=== PATIENT | female | born 1975 | race Two or more races ===

== ENCOUNTER 2019-04-21 14:18 | Emergency (ER) | payer OTHER ==
--- OUTSIDE RECORDS SUMMARY | 2019-04-21 14:36 | XMS REPORT | Continuity of Care Document ---
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 Description No Information Available Social History Type Date Description Comments Sex Unknown Tobacco Use Start: Unknown Patient is a current smoker, smokes some days Smoking Status Reviewed: 03/17/19 Patient is a current smoker, smokes some days Allergies, Adverse Reactions, Alerts Description No Known Drug Allergies Medications Active Medications SIG Qnty Indications Ordering Provider Date Pantoprazole Sodium 1 by mouth 90tabs K44.9 Frances Jin MD 03/17/2019 20mg every day Tablets DR History Medications No Active Medications Frances Jin MD 03/17/2019 - 03/17/2019 Immunizations CPT Code Status Date Vaccine Reaction Lot # [id number] Given 03/17/2019 Tdap - No immediate reaction [id number] Tetanus/Diptheria/Acellular Pertussis Vital Signs Date Vital Result Comment 03/17/2019 3:48pm Height 68 inches 5'8" Weight 245.00 lb Heart Rate 68 /min BP Systolic Sitting 124 mmHg BP Diastolic Sitting 86 mmHg Body Temperature 98.4 F O2 % BldC Oximetry 98 % BMI (Body Mass Index) 37.2 kg/m2 Results Description No Information Available Procedures Description No Information Available Medical Devices Description No Information Available Encounters Description No Information Available Assessments Date Code Description Provider 03/17/2019 K44.9 Diaphragmatic hernia without obstruction or gangrene Frances Jin MD 03/17/2019 D50.9 Iron deficiency anemia, unspecified Frances Jin MD 03/17/2019 E66.9 Obesity, unspecified Frances Jin MD 03/17/2019 Z23 Encounter for immunization Frances Jin MD Plan of Treatment Future Appointment(s):06/17/2019 4:00 pm - [facility] Frances Jin MDK44.9 Diaphragmatic hernia without obstruction or gangreneNew Medication:Pantoprazole Sodium 20 mg - 1 by mouth every dayComments:Please lose weightEat small meals No eating for 3 hours prior to going to bedFollow up:F/U 3 [id number] Iron deficiency anemia, [id number] Obesity, [id number] Encounter for immunization Functional Status Description No Information Available Mental Status Description No Information Available Referrals Description No Information Available
--- NOTE | 2019-04-21 16:13 | ED ---
Complex/Multi-Sys Presentation - HPI Summary HPI Summary: Patient sent by PCP to ER for general weakness, lightheadedness and fatigue 5 days. Rash times one day. Patient has history of heavy vaginal bleedings and anemia requiring transfusion. Denies fever, cough, sore throat, CP, SOB, N/3/D , abdominal pain, change in urine, change in BM, vaginal symptoms. LMP early March. - History Of Current Complaint Chief Complaint: EDDizziness Time Seen by Provider: 04/21/19 16:10 Hx Obtained From: Patient Onset/Duration: Gradual Onset, Lasting Days Timing: Intermittent, Lasting: Severity Currently: Moderate Severity Initially: Moderate Associated Signs And Symptoms: Positive: Weakness - Allergies/Home Medications Allergies/Adverse Reactions: Allergies Allergy/AdvReac Type Severity Reaction Status Date / Time No Known Allergies Allergy Verified 04/21/19 14:26 PMH/Surg Hx/FS Hx/Imm Hx Endocrine/Hematology History: Reports: Hx Anemia - CHRONIC ANEMIA. PT STATES HER BLOOD VALUE HAS BEEN AROUND 6 FOR PAST FEW YE Denies: Hx Blood Transfusions - RECEVING 2 UNITS PRBC 06/02/13 Cardiovascular History: Denies: Hx Pacemaker/ICD History: Denies: Hx Dialysis Sensory History: Reports: Hx Contacts or Glasses - NOT W/PT Denies: Hx Hearing Aid Opthamlomology History: Reports: Hx Contacts or Glasses - NOT W/PT EENT History: Denies: Hx Deafness Neurological History: Denies: Hx Developmental Delay Psychiatric History: Denies: Hx Panic Disorder Infectious Disease History: No Infectious Disease History: Denies: Traveled Outside the [place] in Last 30 Days - Family History Known Family History: Positive: Non-Contributory - Social History Alcohol Use: None Substance Use Type: Reports: None Smoking Status (MU): Never Smoked Tobacco Review of Systems Positive: Fatigue Eyes: Negative ENT: Negative Cardiovascular: Negative Positive: Shortness Of Breath Gastrointestinal: Negative Genitourinary: Negative Musculoskeletal: Negative Skin: Negative Positive: Weakness Psychological: Normal All Other Systems Reviewed And Are Negative: Yes Physical Exam Triage Information Reviewed: Yes Vital Signs On Initial Exam: Initial Vitals Temp Pulse Resp BP Pulse Ox 97.5 F 64 18 141/97 98 04/21/19 14:22 04/21/19 14:22 04/21/19 14:22 04/21/19 14:22 10/14/19 14:22 Vital Signs Reviewed: Yes Appearance: Positive: Well-Appearing Skin: Positive: Warm Head/Face: Positive: Normal Head/Face Inspection Eyes: Positive: Normal Neck: Positive: Supple Respiratory/Lung Sounds: Positive: Clear to Auscultation Cardiovascular: Positive: Normal Abdomen Description: Positive: Nontender Musculoskeletal: Positive: Normal Neurological: Positive: Normal Psychiatric: Positive: Normal AVPU Assessment: Alert - [place] Coma Scale Best Eye Response: 4 - Spontaneous Best Motor Response: 6 - Obeys Commands Best Verbal Response: 5 - Oriented Coma Scale Total: 15 Procedures - Sedation Patient Received Moderate/Deep Sedation with Procedure: No Diagnostics - Vital Signs Vital Signs Temp Pulse Resp BP Pulse Ox 04/21/19 14:22 97.5 F 64 18 141/97 98 - Laboratory Result Diagrams: 04/21/19 16:54 04/21/19 16:54 Lab Statement: Any lab studies that have been ordered have been reviewed, and results considered in the medical decision making process. Complex Multi-Symp Course/Dx Course Of Treatment: Patient sent by PCP to ER for general weakness, lightheadedness and fatigue 5 days. Rash times one day. Patient has history of heavy vaginal bleedings and anemia requiring transfusion. Denies fever, cough, sore throat, CP, SOB, N/3/D, abdominal pain, change in urine, change in BM, vaginal symptoms. LMP early March. Vital signs within normal limits. Labs unremarkable. TSH normal. Iron and ferritin levels normal. B12 normal. EKG sinus rhythm heart rate 68, normal P axis. Patient does admit to being overworked. Symptoms may be related to exhaustion. Work note for 2 days off for rest. If symptoms persist follow-up with PCP. - Diagnoses Provider Diagnoses: Fatigue, Weakness, Lightheadedness Discharge ED - Sign-Out/Discharge Documenting (check all that apply): Patient Departure - Discharge Plan Condition: Stable Disposition: HOME Forms: *Work Release Referrals: Keon Durham MD [Primary Care Provider] - Additional Instructions: Follow-up with primary care for further evaluation. - Billing Disposition and Condition Condition: STABLE Disposition: Home
[2019-04-21 17:08] LABS: ABS Basophils 0.1 10^3/ul (0-0.2); ABS Eosinophils 0.4 10^3/ul (0-0.6); ABS Lymphocytes 2.4 10^3/ul (1.0-4.8); ABS Monocytes 0.7 10^3/ul (0-0.8); ABS Neutrophils 6.9 10^3/ul (1.5-7.7); Hematocrit 42 % (35-47); Hemoglobin 13.9 g/dL (12.0-16.0); Lymphocyte % 22.7 %; Mean Corpuscular HGB Conc 33 g/dL (31-36); Mean Corpuscular Hemoglobin 29 pg (27-31); Mean Corpuscular Volume 87 fL (80-97); Mean Platelet Volume 7.7 fL (7.4-10.4); Platelet Count 288 10^3/uL (150-450); Red Blood Count 4.84 10^6 /uL (3.70-4.87); Red Cell Distribution Width 15 % (10-15); White Blood Count 10.4 10^3/uL (3.5-10.8)
[2019-04-21] MEDS ORDERED: diPHENhydraMINE PO* 25 MG PO ONE (17:24)
[2019-04-21 17:42] LABS: Albumin 3.8 g/dL (3.2-5.2); BUN/Creatinine Ratio 14.7 (8-20); C Reactive Protein 7.35 mg/L (<8.01); Calcium 8.9 mg/dL (8.6-10.3); EGFR African American 112.7 (>60); EGFR Non-African American 93.2 (>60); Globulin 3.7 g/dL (2-4); Magnesium 1.9 mg/dL (1.9-2.7); Potassium 4.1 mmol/L (3.5-5.0); Total Bilirubin 0.2 mg/dL (0.2-1.0); Total Protein 7.5 g/dL (6.4-8.9)
[2019-04-21 17:43] LABS: TSH (Thyroid Stimulating Horm) 1.96 mcIU/mL (0.34-5.60)
[2019-04-21 17:48] LABS: Ferritin 24.3 ng/mL (11-307)
[2019-04-21 17:58] LABS: Urine Appearance Cloudy; Urine Bacteria Absent (Absent); Urine Bilirubin Negative (Negative); Urine Blood 1+ (Negative); Urine Color Yellow; Urine Glucose Negative (Negative); Urine Ketones Negative (Negative); Urine Nitrite Negative (Negative); Urine Protein Negative (Negative); Urine Red Blood Cell 1+(3-5/hpf) (Absent); Urine Specific Gravity 1.014 (1.010-1.030); Urine Squamous Epithelial Cell Present (Absent); Urine Urobilinogen Negative (Negative); Urine White Blood Cell Trace(0-5/hpf) (Absent)
[2019-04-21 18:51] VITALS: BP 148/101
== END 2019-04-21 18:49 | disposition home or self-care (01) ==
LOC: ED 14:18
DX: R53.1 Weakness (principal); R53.83 Other fatigue; R42 Dizziness and giddiness; D64.9 Anemia, unspecified
CPT/HCPCS: 36415; 80053; 81003; 81015; 82607; 82728; 83540; 83605; 83735; 84443; 84484; 85025; 86140; 87086; 93005; 99283; A9270-GY

== ENCOUNTER 2024-07-20 14:06 | Observation (INO) ==
[2024-07-20 15:13] LABS: ABS Eosinophils 0.3 10^3/uL (0.0-0.5); ABS Lymphocytes 2.4 10^3/uL (1.0-4.8); ABS Monocytes 0.6 10^3/uL (0.0-0.9); ABS Neutrophils 5.6 10^3/uL (1.5-7.6); ABS Nucleated RBC 0.01 10^3/ul; Eosinophil % 3.2 %; Hematocrit 43.5 % (35-45); Hemoglobin 14.6 g/dL (11.5-14.3); Lymphocyte % 26.7 %; Mean Corpuscular Hemoglobin 28.6 pg (27-33); Mean Corpuscular Hgb Conc 33.6 g/dL (31-36); Mean Corpuscular Volume 85.1 fL (80-97); Mean Platelet Volume 7.5 fL (7.5-11.2); Nucleated Red Blood Cells % 0.1 %/100WBC (0.0-0.8); Platelet Count 445 10^3/uL (150-450); Red Blood Count 5.12 10^6/uL (3.63-4.92); Red Cell Distribution Width 14.6 % (12-17); White Blood Count 8.9 10^3/uL (3.8-11.8)
[2024-07-20 15:51] LABS: ALT 20 U/L (7-52); AST 15 U/L (13-39); Albumin 3.6 g/dL (3.5-5.7); Albumin/Globulin Ratio 0.8 (1-3); Alkaline Phosphatase 84 U/L (35-149); Anion Gap 5 mmol/L (2-16); Blood Urea Nitrogen 5 mg/dL (6-24); CO2 Carbon Dioxide 27 mmol/L (22-32); Chloride 104 mmol/L (101-111); Creatinine, Serum 0.73 mg/dL (0.51-0.95); Globulin 4.3 g/dL (2-4); Glucose 105 mg/dL (70-100); Potassium 4.2 mmol/L (3.5-5.0); Sodium 136 mmol/L (135-145); Total Bilirubin 0.4 mg/dL (0.2-1.0); Total Protein 7.9 g/dL (6.4-8.9); eGFR CKD-EPI 99.5 (>60)
[2024-07-20 15:56] LABS: HCG Pregnancy < 0.60 mIU/mL
[2024-07-20] MEDS: cefTRIAXone 1 gm/50 mL D5W 1 GM/50 ML BAG IV ONE (16:03)
[2024-07-20] MEDS: Azithromycin 500 mg/250 ml NS 500 MG/250 ML BAG IVPB ONE (17:04)
[2024-07-20] MEDS: Albuterol/Ipratropium NEB.SOL (2.5/0.5 MG) 3 ML NEB.SOLN INH ONE (17:05)
[2024-07-20 17:42] LABS: High Sensitivity Troponin 1 Hr 5 pg/mL (<15)
[2024-07-20] MEDS: Acetaminophen IV 1 GM/100ML 1,000 MG/100 ML BAG IV ONE (18:43)
[2024-07-20] MEDS: Albuterol/Ipratropium NEB.SOL (2.5/0.5 MG) 3 ML NEB.SOLN INH SCH (19:40)
[2024-07-20 19:50] LABS: Magnesium 1.9 mg/dL (1.9-2.7)
[2024-07-20] MEDS: methylPREDNISolone SOD SUCC 40 mg/ml 1 ml VIAL IV ONE (20:03)
[2024-07-20] MEDS: Pantoprazole VIAL 40 MG VIAL IV SCH (20:04)
[2024-07-20] MEDS: Enoxaparin 40 MG/0.4 ML SYR SUBCUT SCH (20:04)
[2024-07-21] MEDS ORDERED: Albuterol/Ipratropium NEB.SOL (2.5/0.5 MG) 3 ML NEB.SOLN ONE (00:48)
[2024-07-21] MEDS: Albuterol/Ipratropium NEB.SOL (2.5/0.5 MG) 3 ML NEB.SOLN INH PRN (00:54)
[2024-07-21 05:50] LABS: ABS Basophils 0.1 10^3/uL (0.0-0.1); ABS Lymphocytes 1.2 10^3/uL (1.0-4.8); ABS Monocytes 0.1 10^3/uL (0.0-0.9); ABS Neutrophils 9.4 10^3/uL (1.5-7.6); Hemoglobin 13.4 g/dL (11.5-14.3); Lymphocyte % 10.7 %; Mean Corpuscular Hemoglobin 28.3 pg (27-33); Mean Corpuscular Hgb Conc 33.6 g/dL (31-36); Mean Corpuscular Volume 84.4 fL (80-97); Mean Platelet Volume 7.6 fL (7.5-11.2); Platelet Count 394 10^3/uL (150-450); Red Blood Count 4.74 10^6/uL (3.63-4.92); Red Cell Distribution Width 14.6 % (12-17); White Blood Count 10.8 10^3/uL (3.8-11.8)
[2024-07-21 06:50] LABS: Calcium 9.1 mg/dL (8.6-10.3); Creatinine, Serum 0.57 mg/dL (0.51-0.95); Magnesium 1.9 mg/dL (1.9-2.7); Potassium 4.5 mmol/L (3.5-5.0)
[2024-07-21] MEDS: Morphine 2 MG/ML SYRINGE IV ONE (13:19)
[2024-07-21] MEDS: Acetaminophen IV 1 GM/100ML 1,000 MG/100 ML BAG IV PRN (15:26)
[2024-07-21] MEDS ORDERED: Morphine 2 MG/ML SYRINGE IV PRN (15:28)
[2024-07-21] MEDS: cefTRIAXone 1 gm/50 mL D5W 1 GM/50 ML BAG IV SCH (15:49)
[2024-07-21] MEDS: Mometasone/Formoter 100/5 MDI INH SCH (19:21)
[2024-07-22 06:28] LABS: ABS Lymphocytes 1.6 10^3/uL (1.0-4.8); ABS Monocytes 0.5 10^3/uL (0.0-0.9); ABS Neutrophils 7.5 10^3/uL (1.5-7.6); Eosinophil % 0.1 %; Hematocrit 37.6 % (35-45); Hemoglobin 12.6 g/dL (11.5-14.3); Lymphocyte % 16.9 %; Mean Corpuscular Hemoglobin 28.4 pg (27-33); Mean Corpuscular Hgb Conc 33.4 g/dL (31-36); Mean Corpuscular Volume 85.1 fL (80-97); Mean Platelet Volume 7.4 fL (7.5-11.2); Platelet Count 354 10^3/uL (150-450); Red Blood Count 4.42 10^6/uL (3.63-4.92); Red Cell Distribution Width 14.9 % (12-17); White Blood Count 9.7 10^3/uL (3.8-11.8)
[2024-07-22 07:15] LABS: Calcium 8.7 mg/dL (8.6-10.3); Creatinine, Serum 0.5 mg/dL (0.51-0.95); Magnesium 1.8 mg/dL (1.9-2.7); Potassium 4.4 mmol/L (3.5-5.0); eGFR CKD-EPI 113.5 (>60)
[2024-07-22] MEDS: Magnesium Sulfate 2 gm BAG 2 GM/50 ML BAG IVPB ONE (08:46)
[2024-07-22 13:52] VITALS: BP 126/87
[2024-07-23 17:29] LABS: Mycoplasma pneumoniae IgG Ab Positive (Negative); Mycoplasma pneumoniae IgM Ab Negative (Negative)
== END 2024-07-22 17:05 | disposition home or self-care (01) ==
LOC: EDHOLD 14:06 → ED 14:06 → MED 07-21 13:45
PROVIDERS: ADMIT Student in an Organized Health Care Education/Training Program; ATTEND Student in an Organized Health Care Education/Training Program